=== PATIENT | female | born 1995 | race Caucasian/White ===

== ENCOUNTER 2018-01-21 03:42 | Emergency (ER) | payer BC, OTHER ==
[2018-01-21 03:49] VITALS: BP 126/71; PULSE 82; RESP 16; TEMP 97
--- NOTE | 2018-01-21 04:15 | ED ---
Chest Pain HPI - General Chief Complaint: Chest Pain Stated Complaint: anxiety Time Seen by Provider: 01/21/18 03:45 Source: patient, EMS Mode of arrival: EMS Limitations: no limitations - History of Present Illness Initial Comments: This patient is 22-year-old woman who presents with proximal to 2 days of right- sided chest pain. She states that its moderate intensity, sharp character, and it does seem to be little worse if she takes deep breath. She has not noted other modifying factors. There are no associated symptoms. MD Complaint: chest pain Onset/Timin -: days(s) Onset: during rest Pain Location: right chest Pain Radiation: none Severity: moderate Quality: sharp Consistency: constant Improves With: nothing Worsens With: inspiration Treatments Prior to Arrival: none - Related Data Home Medications Medication Instructions Recorded Confirmed Albuterol Sulfate [Proair 2 puff PO DIRECTED PRN 02/29/16 06/21/16 Respiclick] Budesonide-Formot 160-4.5 Mcg 2 puff INHALATION BID 02/29/16 06/21/16 [Symbicort 160-4.5 Mcg Inhaler] Jwl-Pewh-Kkatg Acid 1 tab PO DAILY 02/29/16 06/21/16 [-U Capsule (formulary)] Previous Rx's Medication Instructions Recorded Acetaminophen-Codeine 300-30mg 1 - 2 each PO Q4HR PRN #30 tab 06/23/16 [Tylenol w/codeine #3] Ibuprofen [Motrin] 600 mg PO Q6HR PRN #40 tab 06/23/16 Iron Ag/C/B12/Ca/Suc.acid/Stom 1 each PO DAILY #30 tab 06/23/16 [Chromagen LF] Ibuprofen [Motrin] 600 mg PO Q8HR PRN #20 tab 01/21/18 Allergies Allergy/AdvReac Type Severity Reaction Status Date / Time No Known Allergies Allergy Verified 01/21/18 03:49 Review of Systems ROS Statement: Those systems with pertinent positive or pertinent negative responses have been documented in the HPI. ROS Other: All systems not noted in ROS Statement are negative. Constitutional: Denies: fever, chills Respiratory: Denies: cough, dyspnea Cardiovascular: Reports: as per HPI, chest pain. Denies: palpitations, orthopnea, edema, syncope Gastrointestinal: Denies: abdominal pain, nausea, vomiting Genitourinary: Denies: hematuria Musculoskeletal: Denies: back pain Skin: Denies: rash Neurological: Denies: headache, weakness, numbness EKG Findings - EKG Results: EKG: interpreted by LOLA NORTON, sinus rhythm (Rate 80 bpm), normal axis, normal QRS, normal ST/T, no acute changes - AR, Pacemaker, Normal: Normal tracing: normal tracing Past Medical History Past Medical History: Asthma History of Any Multi-Drug Resistant Organisms: None Reported Past Surgical History: No Surgical Hx Reported Past Psychological History: No Psychological Hx Reported Smoking Status: Current every day smoker Past Alcohol Use History: Occasional Past Drug Use History: None Reported - Past Family History Father Family Medical History: No Reported History General Exam Limitations: no limitations General appearance: alert, in no apparent distress Head exam: Present: atraumatic, normocephalic Eye exam: Present: normal appearance. Absent: scleral icterus, conjunctival injection Respiratory exam: Present: normal lung sounds bilaterally. Absent: respiratory distress, wheezes, rales, rhonchi, stridor, chest wall tenderness, accessory muscle use, decreased breath sounds Cardiovascular Exam: Present: regular rate, normal rhythm, normal heart sounds. Absent: systolic murmur, diastolic murmur, rubs, gallop GI/Abdominal exam: Present: soft. Absent: distended, tenderness, guarding, rebound Extremities exam: Present: normal inspection, normal capillary refill. Absent: pedal edema, calf tenderness Back exam: Present: normal inspection. Absent: CVA tenderness (R), CVA tenderness (L) Neurological exam: Present: alert Skin exam: Present: warm, dry, intact, normal color. Absent: rash Course Vital Signs 01/21/18 03:43 Temperature 97 F L Pulse Rate 82 Respiratory 16 Rate Blood Pressure 126/71 O2 Sat by Pulse 98 Oximetry Disposition Clinical Impression: Chest pain Disposition: HOME SELF-CARE Condition: Good Instructions: Chest Pain (ED) Prescriptions: Ibuprofen [Motrin] 600 mg PO Q8HR PRN #20 tab PRN Reason: Pain Is patient prescribed a controlled substance at d/c from ED?: No Referrals: Meli Montana DO [Primary Care Provider] - 1-2 days
[2018-01-21] MEDS: IBUPROFEN 600 MG TAB PO STA ×2 (04:28→04:29)
[2018-01-21 04:46] LABS: Basophils # (A) 0.1 k/uL (0-0.2); Basophils % (A) 1 %; Eosinophils # (A) 0.2 k/uL (0-0.7); Eosinophils % (A) 3 %; HCT 44.2 % (34.0-46.0); HGB 14.7 gm/dL (11.4-16.0); Lymphocytes # (A) 1.8 k/uL (1.0-4.8); Lymphocytes % (A) 27 %; MCH 30.7 pg (25.0-35.0); MCHC 33.3 g/dL (31.0-37.0); MCV 92.2 fL (80.0-100.0); Mean Platelet Volume 7.1; Monocytes # (A) 0.4 k/uL (0-1.0); Monocytes % (A) 6 %; Neutrophils # (A) 4.1 k/uL (1.3-7.7); Neutrophils % (A) 62 %; Platelet Count 130 k/uL (150-450); RBC 4.79 m/uL (3.80-5.40); RDW 12.7 % (11.5-15.5); WBC 6.6 k/uL (3.8-10.6)
[2018-01-21 04:58] LABS: ALT 37 U/L (9-52); AST 27 U/L (14-36); Albumin 3.9 g/dL (3.5-5.0); Alkaline Phosphatase 83 U/L (38-126); Anion Gap 16 mmol/L; Blood Urea Nitrogen 12 mg/dL (7-17); Carbon Dioxide 19 mmol/L (22-30); Chloride 107 mmol/L (98-107); D-Dimer 0.53 mg/L FEU (<0.60); Glucose 96 mg/dL (74-99); INR 1.1 (<1.2); Magnesium 1.9 mg/dL (1.6-2.3); Partial Thromboplastin Time 26.4 sec (22.0-30.0); Potassium 3.4 mmol/L (3.5-5.1); Prothrombin Time 10.3 sec (9.0-12.0); Sodium 142 mmol/L (137-145); Total Bilirubin 0.3 mg/dL (0.2-1.3); Total Protein 6.2 g/dL (6.3-8.2)
[2018-01-21 04:59] LABS: Creatine Kinase 214 U/L (30-135)
--- NOTE | 2018-01-21 05:08 | XR ---
EXAM: XR Chest, 2 Views CLINICAL HISTORY: ITS.REASON XR Reason: Chest Pain TECHNIQUE: Frontal and lateral views of the chest. COMPARISON: No relevant prior studies available. FINDINGS: Lungs: No consolidation. Pleural space: No effusion. No pneumothorax. Heart: Unremarkable. No cardiomegaly. Mediastinum: Unremarkable. Bones/joints: No acute fracture. No dislocation. IMPRESSION: No acute cardiopulmonary process.
[2018-01-21 05:12] LABS: Creatine Kinase MB 0.5 ng/mL (0.0-2.4); Troponin I <0.012 ng/mL (0.000-0.034)
== END 2018-01-21 05:37 | disposition home or self-care (01) ==
LOC: EC 03:42
DX: R07.9 Chest pain, unspecified (principal); J45.909 Unspecified asthma, uncomplicated; F17.200 Nicotine dependence, unspecified, uncomplicated; Z79.51 Long term (current) use of inhaled steroids
CPT/HCPCS: 36415; 71046; 80053; 82550; 82553; 83735; 84484; 85025; 85379; 85610; 85730; 93005; 99285

== ENCOUNTER 2019-02-23 22:42 | Observation (INO) | payer BC ==
[2019-02-23] MEDS ORDERED: SODIUM CHLORIDE 0.9% 1,000 ML IV ONE (23:36)
--- NOTE | 2019-02-23 23:37 | ED ---
General Adult HPI - General Source: patient Mode of arrival: ambulatory Limitations: no limitations <Trina Roy - Last Filed: 02/24/19 00:24> <Alexandria Rockwell - Last Filed: 02/24/19 03:55> - General Chief complaint: Overdose Stated complaint: Overdose Time Seen by Provider: 02/23/19 23:27 - History of Present Illness Initial comments: 23-year-old female presenting with altered mental status. Patient's friends at bedside providing history. They state that the patient's mother is a strong history of drug abuse and she was there all day. They picked her up to go to her boyfriend's house to get clothes. Her friends state that she has been under a lot of stress secondary to her boyfriend not giving her children to her. They state while in the car she was screaming about seeing bugs and bombs going off. They deny any history of behavior like this in the past. Patient states she took her adderall and control today. She denies any other drug use. She states she drank half a beer. Denies any other drug ingestion. Denies SI or intentional ingestion. (Trina Roy) - Related Data Home Medications Medication Instructions Recorded Confirmed Dextroamphetamine/Amphetamine 30 mg PO BID 02/23/19 02/23/19 [Adderall] Ibuprofen [Motrin] 800 mg PO TID PRN 02/23/19 02/23/19 Merrick Fe 1 tab PO DAILY 02/23/19 02/23/19 Allergies Allergy/AdvReac Type Severity Reaction Status Date / Time paroxetine [From Paxil] AdvReac Hallucinati Verified 02/23/19 23:40 ons Review of Systems ROS Other: All systems not noted in ROS Statement are negative. <Trina Roy - Last Filed: 02/24/19 00:24> ROS Other: All systems not noted in ROS Statement are negative. <Alexandria Rockwell - Last Filed: 02/24/19 03:55> ROS Statement: Those systems with pertinent positive or pertinent negative responses have been documented in the HPI. Review of Systems Constitutional: Denies fever, chills Eyes: Denies change in vision, Denies pain Ears, nose, mouth, throat: Denies headaches, Denies sore throat Cardiovascular: Denies chest pain. Denies palpitations Respiratory: Denies shortness of breath, Denies cough Gastrointestinal: Denies abdominal pain. Denies nausea, vomiting, diarrhea. Genitourinary: Denies hematuria, Denies infections Musculoskeletal: Denies pain, Denies swelling Integumentary: Denies rash Neurological: Denies headache, focal weakness, focal numbness. Positive hallucinations. Psychiatric: Denies anxiety, Denies depression Hematologic/Lymphatic: Denies easy bleeding or bruising (rTina Roy) Past Medical History Past Medical History: Asthma History of Any Multi-Drug Resistant Organisms: None Reported Past Surgical History: No Surgical Hx Reported Past Psychological History: No Psychological Hx Reported Smoking Status: Current every day smoker Past Alcohol Use History: Occasional Past Drug Use History: None Reported - Past Family History Father Family Medical History: No Reported History <Trina Roy - Last Filed: 02/24/19 00:24> General Exam Limitations: no limitations <Trina Roy - Last Filed: 02/24/19 00:24> - General Exam Comments Initial Comments: General: Awake, alert, No acute Distress HENT: Normocephalic. Atraumatic Eyes: PERRL. EOMI. No scleral icterus. No injected conjunctiva Neck: Full ROM Chest/Lungs: Clear to auscultation bilaterally. No wheezing, rhonchi, or rales Cardiac: Regular rate, rhythm. No murmurs or rubs Abdomen/GI: Soft, nontender, nondistended. No rebound, guarding, or rigidity. Musculoskeletal: Full ROM Skin: Warm, dry, intact Neurologic: A/Ox3, no weakness, no sensory deficit, no abnormal gait, no coordination deficit (Trina Roy) Course Vital Signs 02/23/19 02/24/19 02/24/19 22:53 00:26 00:30 Temperature 98 F Pulse Rate 121 H 114 H Respiratory 18 19 Rate Blood Pressure 133/82 123/91 O2 Sat by Pulse 100 96 96 Oximetry 02/24/19 02/24/19 02/24/19 01:00 01:30 02:00 Temperature Pulse Rate 105 H Respiratory 20 Rate Blood Pressure 114/88 126/85 124/60 O2 Sat by Pulse 98 Oximetry 02/24/19 02:30 Temperature Pulse Rate Respiratory Rate Blood Pressure 126/80 O2 Sat by Pulse Oximetry Medical Decision Making - Lab Data Result diagrams: 02/23/19 23:53 02/23/19 23:53 <Trina Roy - Last Filed: 02/24/19 00:24> - Lab Data Result diagrams: 02/23/19 23:53 02/23/19 23:53 <Alexanrdia Rockwell - Last Filed: 02/24/19 03:55> - Medical Decision Making 23-year-old female presenting with possible overdose. Initial exam the patient is awake and alert. The triage notes that she was lethargic but on my examination that is not the case. Vital signs are stable. 0024 Patient is agitated and stating she is seeing bugs crawling on her. Ativan 1 mg given IV. (Trina Roy) Patient care was signed out to me by Dr Krause, patient with no psychiatric history presenting agitated and reporting she is seeing bugs crawling on her. Per friends patient is also under social stress due to custody issues with her children and strained relationship with her ex. Labs and imaging were unremarkable. Upon re-evaluation patient was sleeping, patient would not participate in my evaluation. responds to painful stimuli. Resists exam, holds eyes closed and turns head away when I attempted to examine her. At this time I feel the patient requires with her observation and possible evaluation by psych psychiatric services in the morning. Patient care was discussed with , per the preference of her primary care physician Dr. Montana. Dr. Etienne agrees with plan for admission psychiatric observation. (Alexandria Rockwell) - Lab Data Lab Results 02/23/19 02/23/19 02/23/19 Range/Units 23:19 23:53 23:53 WBC 9.1 (3.8-10.6) k/uL RBC 4.60 (3.80-5.40) m/uL Hgb 14.0 (11.4-16.0) gm/dL Hct 42.7 (34.0-46.0) % MCV 92.8 (80.0-100.0) fL MCH 30.4 (25.0-35.0) pg MCHC 32.7 (31.0-37.0) g/dL RDW 13.0 (11.5-15.5) % Plt Count 141 L (150-450) k/uL Neutrophils % 71 % Lymphocytes % 20 % Monocytes % 5 % Eosinophils % 2 % Basophils % 1 % Neutrophils # 6.5 (1.3-7.7) k/uL Lymphocytes # 1.8 (1.0-4.8) k/uL Monocytes # 0.5 (0-1.0) k/uL Eosinophils # 0.2 (0-0.7) k/uL Basophils # 0.1 (0-0.2) k/uL Sodium 138 (137-145) mmol/L Potassium 3.6 (3.5-5.1) mmol/L Chloride 106 (98-107) mmol/L Carbon Dioxide 26 (22-30) mmol/L Anion Gap 6 mmol/L BUN 9 (7-17) mg/dL Creatinine 0.89 (0.52-1.04) mg/dL Est GFR (CKD-EPI)AfAm >90 (>60 ml/min/1.73 sqM) Est GFR (CKD-EPI)NonAf >90 (>60 ml/min/1.73 sqM) Glucose 128 H (74-99) mg/dL Calcium 9.5 (8.4-10.2) mg/dL Total Bilirubin 0.7 (0.2-1.3) mg/dL AST 26 (14-36) U/L ALT 29 (9-52) U/L Alkaline Phosphatase 106 (38-126) U/L Total Protein 6.6 (6.3-8.2) g/dL Albumin 4.1 (3.5-5.0) g/dL HCG, Qual Not Detected Urine Color Yellow Urine Appearance Cloudy H (Clear) Urine pH 6.5 (5.0-8.0) Ur Specific [place] 1.008 (1.001-1.035) Urine Protein Negative (Negative) Urine Glucose (UA) Negative (Negative) Urine Ketones Trace H (Negative) Urine Blood Negative (Negative) Urine Nitrite Negative (Negative) Urine Bilirubin Negative (Negative) Urine Urobilinogen 4.0 (<2.0) mg/dL Ur Leukocyte Esterase Large H (Negative) Urine RBC 2 (0-5) /hpf Urine WBC 17 H (0-5) /hpf Ur Squamous Epith Cells 15 H (0-4) /hpf Urine Bacteria Few H (None) /hpf Urine Mucus Rare H (None) /hpf Urine Opiates Screen Not Detected (NotDetected) Ur Oxycodone Screen Not Detected (NotDetected) Urine Methadone Screen Not Detected (NotDetected) Ur Propoxyphene Screen Not Detected (NotDetected) Ur Barbiturates Screen Not Detected (NotDetected) U Tricyclic Antidepress Not Detected (NotDetected) Ur Phencyclidine Scrn Not Detected (NotDetected) Ur Amphetamines Screen Detected H (NotDetected) U Methamphetamines Scrn Not Detected (NotDetected) U Benzodiazepines Scrn Not Detected (NotDetected) Urine Cocaine Screen Not Detected (NotDetected) U Marijuana (THC) Screen Not Detected (NotDetected) Serum Alcohol mg/dL 02/24/19 Range/Units 02:15 WBC (3.8-10.6) k/uL RBC (3.80-5.40) m/uL Hgb (11.4-16.0) gm/dL Hct (34.0-46.0) % MCV (80.0-100.0) fL MCH (25.0-35.0) pg MCHC (31.0-37.0) g/dL RDW (11.5-15.5) % Plt Count (150-450) k/uL Neutrophils % % Lymphocytes % % Monocytes % % Eosinophils % % Basophils % % Neutrophils # (1.3-7.7) k/uL Lymphocytes # (1.0-4.8) k/uL Monocytes # (0-1.0) k/uL Eosinophils # (0-0.7) k/uL Basophils # (0-0.2) k/uL Sodium (137-145) mmol/L Potassium (3.5-5.1) mmol/L Chloride (98-107) mmol/L Carbon Dioxide (22-30) mmol/L Anion Gap mmol/L BUN (7-17) mg/dL Creatinine (0.52-1.04) mg/dL Est GFR (CKD-EPI)AfAm (>60 ml/min/1.73 sqM) Est GFR (CKD-EPI)NonAf (>60 ml/min/1.73 sqM) Glucose (74-99) mg/dL Calcium (8.4-10.2) mg/dL Total Bilirubin (0.2-1.3) mg/dL AST (14-36) U/L ALT (9-52) U/L Alkaline Phosphatase (38-126) U/L Total Protein (6.3-8.2) g/dL Albumin (3.5-5.0) g/dL HCG, Qual Urine Color Urine Appearance (Clear) Urine pH (5.0-8.0) Ur Specific [place] (1.001-1.035) Urine Protein (Negative) Urine Glucose (UA) (Negative) Urine Ketones (Negative) Urine Blood (Negative) Urine Nitrite (Negative) Urine Bilirubin (Negative) Urine Urobilinogen (<2.0) mg/dL Ur Leukocyte Esterase (Negative) Urine RBC (0-5) /hpf Urine WBC (0-5) /hpf Ur Squamous Epith Cells (0-4) /hpf Urine Bacteria (None) /hpf Urine Mucus (None) /hpf Urine Opiates Screen (NotDetected) Ur Oxycodone Screen (NotDetected) Urine Methadone Screen (NotDetected) Ur Propoxyphene Screen (NotDetected) Ur Barbiturates Screen (NotDetected) U Tricyclic Antidepress (NotDetected) Ur Phencyclidine Scrn (NotDetected) Ur Amphetamines Screen (NotDetected) U Methamphetamines Scrn (NotDetected) U Benzodiazepines Scrn (NotDetected) Urine Cocaine Screen (NotDetected) U Marijuana (THC) Screen (NotDetected) Serum Alcohol <10 mg/dL Disposition <Trina Roy E - Last Filed: 02/24/19 00:24> <Alexandria Rockwell - Last Filed: 02/24/19 03:55> Clinical Impression: Altered behavior Disposition: ADMITTED IP TO THIS [facility] Condition: Stable Referrals: Meli Montana DO [Primary Care Provider] - 1-2 days
[2019-02-24 00:11] LABS: Appearance,Urine Cloudy (Clear); Bacteria,Urine Few /hpf; Bilirubin,Urine Negative (Negative); Blood,Urine Negative (Negative); Color,Urine Yellow; Glucose,Urine (UA) Negative (Negative); Ketones,Urine Trace (Negative); Leukocyte Esterase,Urine Large (Negative); Mucus,Urine Rare /hpf; Nitrite,Urine Negative (Negative); PH, Urine 6.5 (5.0-8.0); Protein,Urine Negative (Negative); RBC,Urine 2 /hpf (0-5); Specific Gravity,Urine 1.008 (1.001-1.035); Squamous Epithelial Cell,Urine 15 /hpf (0-4); WBC,Urine 17 /hpf (0-5)
[2019-02-24 00:12] LABS: Basophils # (A) 0.1 k/uL (0-0.2); Basophils % (A) 1 %; Eosinophils # (A) 0.2 k/uL (0-0.7); Eosinophils % (A) 2 %; HCT 42.7 % (34.0-46.0); Lymphocytes # (A) 1.8 k/uL (1.0-4.8); Lymphocytes % (A) 20 %; MCH 30.4 pg (25.0-35.0); MCHC 32.7 g/dL (31.0-37.0); MCV 92.8 fL (80.0-100.0); Mean Platelet Volume 8.3; Monocytes # (A) 0.5 k/uL (0-1.0); Monocytes % (A) 5 %; Neutrophils # (A) 6.5 k/uL (1.3-7.7); Neutrophils % (A) 71 %; Platelet Count 141 k/uL (150-450); WBC 9.1 k/uL (3.8-10.6)
[2019-02-24 00:21] LABS: ALT 29 U/L (9-52); AST 26 U/L (14-36); African American GFR (CKD) >90 (>60 ml/min/1.73 sqM); Albumin 4.1 g/dL (3.5-5.0); Alkaline Phosphatase 106 U/L (38-126); Anion Gap 6 mmol/L; Blood Urea Nitrogen 9 mg/dL (7-17); Calcium 9.5 mg/dL (8.4-10.2); Carbon Dioxide 26 mmol/L (22-30); Chloride 106 mmol/L (98-107); Glucose 128 mg/dL (74-99); Potassium 3.6 mmol/L (3.5-5.1); Sodium 138 mmol/L (137-145); Total Bilirubin 0.7 mg/dL (0.2-1.3); Total Protein 6.6 g/dL (6.3-8.2)
[2019-02-24 00:23] LABS: HCG,Qualitative Serum Not Detected
[2019-02-24] MEDS ORDERED: LORazepam 2 MG/ML INJ IV STA (00:23)
[2019-02-24 00:24] LABS: Amphetamine Screen,Urine Detected (NotDetected); Barbiturate Screen,Urine Not Detected (NotDetected); Benzodiazepines Screen,Urine Not Detected (NotDetected); Cocaine Screen,Urine Not Detected (NotDetected); Methadone Screen, Urine Not Detected (NotDetected); Opiate Screen,Urine Not Detected (NotDetected); Oxycodone Screen, Urine Not Detected (NotDetected); Phencyclidine Screen,Urine Not Detected (NotDetected); Tricyclic Antidepressant,Urine Not Detected (NotDetected); Urn Cannabinoid Scrn Not Detected (NotDetected)
--- NOTE | 2019-02-24 01:51 | CT ---
EXAM: CT Head Without Intravenous Contrast CLINICAL HISTORY: ITS.REASON CT Reason: Papilledema TECHNIQUE: Axial computed tomography images of the head/brain without intravenous contrast. CTDI is 49.1 mGy and DLP is 1099.4 mGy-cm. This CT exam was performed using one or more of the following dose reduction techniques: automated exposure control, adjustment of the mA and/or kV according to patient size, and/or use of iterative reconstruction technique. COMPARISON: No relevant prior studies available. FINDINGS: Brain: Unremarkable. No hemorrhage. No significant white matter disease. No edema. Ventricles: Unremarkable. No ventriculomegaly. Bones/joints: Unremarkable. No acute fracture. Soft tissues: Unremarkable. Sinuses: Unremarkable as visualized. No acute sinusitis. Mastoid air cells: Unremarkable as visualized. No mastoid effusion. IMPRESSION: Normal head/brain CT.
[2019-02-24] MEDS ORDERED: LORazepam 2 MG/ML INJ IV PRN (03:47)
[2019-02-24] MEDS ORDERED: NALOXONE 0.4 MG/ML 1 ML VIAL IV PRN (03:47)
[2019-02-24] MEDS: SODIUM CHLORIDE 0.9% 1,000 ML IV SCH ×2 (04:14→20:01)
--- NOTE | 2019-02-24 12:57 | P.HPIM ---
History of Present Illness H&P Date: 02/24/19 This is a 23-year-old female patient who presented to the hospital with complains of altered mental status changes. Patient is unable to recall the events of yesterday. Per ER report patient's friend reported that she was confused and screaming about bugs and bombs going off. Per ER report patient has been under a lot of stress secondary to her boyfriend and child custody. Patient's medical history includes asthma and nicotine dependence. CT completed showing normal head. EKG completed showing normal sinus rhythm normal EKG. Patient reports she last remembers going to her sisters.. Patient denies taking any drugs or alcohol. Patient remembers taking her control. Drug toxicology positive amphetamines. serum alcohol less than 10. Patient denies any recent illness. Patient denies any chest pain or shortness breath. Patient denies nausea vomiting or diarrhea. Denies any urinary burning or frequency. Patient is now alert and oriented following commands. Patient does appear slow to respond but responds appropriately to questions. Patient is not combative. psychiatry and neurology services have been consulted. Review of Systems please refer to HPI otherwise unremarkable Past Medical History Past Medical History: Asthma History of Any Multi-Drug Resistant Organisms: None Reported Past Surgical History: No Surgical Hx Reported Past Psychological History: No Psychological Hx Reported Smoking Status: Current every day smoker Past Alcohol Use History: Occasional Past Drug Use History: None Reported - Past Family History Father Family Medical History: No Reported History Medications and Allergies Home Medications Medication Instructions Recorded Confirmed Type Dextroamphetamine/Amphetamine 30 mg PO BID 02/23/19 02/23/19 History [Adderall] Ibuprofen [Motrin] 800 mg PO TID PRN 02/23/19 02/23/19 History Merrick Fe 1 tab PO DAILY 02/23/19 02/23/19 History Allergies Allergy/AdvReac Type Severity Reaction Status Date / Time paroxetine [From Paxil] AdvReac Hallucinati Verified 02/23/19 23:40 ons Physical Exam Vitals: Vital Signs Temp Pulse Pulse Resp BP BP Pulse Ox 02/24/19 07:09 98.5 F 92 18 96/55 96 02/24/19 05:25 97.5 F L 76 23 116/78 96 02/24/19 04:45 71 14 112/76 98 02/24/19 04:30 97.7 F 75 14 112/76 96 02/24/19 04:00 76 15 111/72 96 02/24/19 03:30 74 14 114/68 95 02/24/19 02:30 126/80 02/24/19 02:00 124/60 02/24/19 01:30 126/85 02/24/19 01:00 105 H 20 114/88 98 02/24/19 00:30 114 H 19 123/91 96 02/24/19 00:26 96 02/23/19 22:53 98 F 121 H 18 133/82 100 Intake and Output 02/23/19 02/24/19 02/24/19 22:59 06:59 14:59 Intake Total 1000 Balance 1000 Intake: Amount of Fluid Infused ( 1000 ml) Other: Weight 65.771 kg Head normocephalic Neck supple Lungs clear to auscultation bilaterally no wheezing or crackles Heart regular rate and rhythm S1-S2, no rub or gallop Abdomen is soft nontender nondistended positive bowel sounds no hepatosplenomegaly Extremities no edema Neuro alert and orientated to 3. Answers questions appropriately. Slightly slow to respond. Equal strength throughout all extremities Results CBC & Chem 7: 02/23/19 23:53 02/23/19 23:53 Labs: Abnormal Lab Results - Last 24 Hours (Table) 02/23/19 02/23/19 02/23/19 Range/Units 23:19 23:53 23:53 Plt Count 141 L (150-450) k/uL Glucose 128 H (74-99) mg/dL Urine Appearance Cloudy H (Clear) Urine Ketones Trace H (Negative) Ur Leukocyte Esterase Large H (Negative) Urine WBC 17 H (0-5) /hpf Ur Squamous Epith Cells 15 H (0-4) /hpf Urine Bacteria Few H (None) /hpf Urine Mucus Rare H (None) /hpf Ur Amphetamines Screen Detected H (NotDetected) Assessment and Plan Assessment: 1. Altered mental status changes. Head CT completed showing normal head. Drug screen positive for amphetamines. Serum alcohol less than 10. Psychiatry and neurology services have been consulted. 2. History of asthma. No exacerbation at this time 3. Nicotine dependence. Nicotine patch has been ordered. Patient educated on smoking cessation greater than 3 minutes 4. Increased social stress. Psychiatry services have been consulted DVT prophylaxis Lovenox. GI prophylaxis Protonix Time with Patient: Greater than 30 (Greater than 60% of the total time spent in counseling and coordination of care. I performed an examination of the patient and discussed their management with the Nurse Practitioner. I have reviewed the Nurse Practitioner's notes and agree with the documented findings and plan of care)
[2019-02-24 15:03] VITALS: BMI 24.1
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
[2019-02-24] MEDS: NICOTINE 14MG/24HR PATCH TRANSDERM SCH (17:24)
[2019-02-24] MEDS: ACETAMINOPHEN TAB 325 MG TAB PO PRN (23:07)
[2019-02-25] MEDS: SODIUM CHLORIDE 0.9% 1,000 ML IV SCH ×2 (04:39→21:48)
[2019-02-25] MEDS ORDERED: PANTOPRAZOLE 40 MG TABLET PO SCH (07:30)
[2019-02-25 08:08] LABS: Basophils # (A) 0.1 k/uL (0-0.2); Basophils % (A) 1 %; Eosinophils # (A) 0.2 k/uL (0-0.7); Eosinophils % (A) 3 %; HCT 41.8 % (34.0-46.0); HGB 13.6 gm/dL (11.4-16.0); Lymphocytes # (A) 2.8 k/uL (1.0-4.8); Lymphocytes % (A) 38 %; MCHC 32.5 g/dL (31.0-37.0); MCV 95.4 fL (80.0-100.0); Mean Platelet Volume 7.9; Monocytes # (A) 0.4 k/uL (0-1.0); Monocytes % (A) 5 %; Neutrophils # (A) 3.7 k/uL (1.3-7.7); Neutrophils % (A) 51 %; Platelet Count 135 k/uL (150-450); RBC 4.38 m/uL (3.80-5.40); RDW 12.3 % (11.5-15.5); WBC 7.4 k/uL (3.8-10.6)
[2019-02-25] MEDS: NICOTINE 14MG/24HR PATCH TRANSDERM SCH (08:10)
[2019-02-25 08:25] LABS: ALT 26 U/L (9-52); AST 20 U/L (14-36); African American GFR (CKD) >90 (>60 ml/min/1.73 sqM); Albumin 3.2 g/dL (3.5-5.0); Alkaline Phosphatase 86 U/L (38-126); Anion Gap 6 mmol/L; Blood Urea Nitrogen 8 mg/dL (7-17); Calcium 8.4 mg/dL (8.4-10.2); Carbon Dioxide 25 mmol/L (22-30); Chloride 109 mmol/L (98-107); Glucose 88 mg/dL (74-99); Sodium 140 mmol/L (137-145); Total Bilirubin 0.3 mg/dL (0.2-1.3); Total Protein 5.4 g/dL (6.3-8.2)
--- NOTE | 2019-02-25 08:40 | P.PN ---
Progress Note - Text Progress Note Date: 02/25/19 Labs reviewed. B12 <400. Will send MMA and homocysteine to make sure she does not meet criteria for B12 deficiency. These tests will take several days to come back. Suggest outpatient follow-up. No other inpatient neuro recs at this time. Please call with new questions.
[2019-02-25] MEDS ORDERED: ENOXAPARIN 40 MG/0.4 ML SYRINGE SQ SCH (09:00)
[2019-02-25] MEDS ORDERED: NICOTINE 14MG/24HR PATCH TRANSDERM SCH (09:00)
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
[2019-02-25] MEDS: ACETAMINOPHEN TAB 325 MG TAB PO PRN (20:06)
[2019-02-26 07:07] LABS: Basophils # (A) 0.1 k/uL (0-0.2); Basophils % (A) 1 %; Eosinophils # (A) 0.3 k/uL (0-0.7); Eosinophils % (A) 4 %; HCT 43.4 % (34.0-46.0); HGB 13.9 gm/dL (11.4-16.0); Lymphocytes # (A) 2.6 k/uL (1.0-4.8); Lymphocytes % (A) 34 %; MCH 30.8 pg (25.0-35.0); MCV 96.3 fL (80.0-100.0); Mean Platelet Volume 8.1; Monocytes # (A) 0.4 k/uL (0-1.0); Monocytes % (A) 5 %; Neutrophils # (A) 4.2 k/uL (1.3-7.7); Neutrophils % (A) 55 %; Platelet Count 140 k/uL (150-450); RBC 4.51 m/uL (3.80-5.40); RDW 14.3 % (11.5-15.5); WBC 7.6 k/uL (3.8-10.6)
[2019-02-26 07:21] LABS: ALT 26 U/L (9-52); AST 17 U/L (14-36); African American GFR (CKD) >90 (>60 ml/min/1.73 sqM); Albumin 3.4 g/dL (3.5-5.0); Alkaline Phosphatase 78 U/L (38-126); Anion Gap 7 mmol/L; Blood Urea Nitrogen 13 mg/dL (7-17); Calcium 8.8 mg/dL (8.4-10.2); Carbon Dioxide 23 mmol/L (22-30); Chloride 111 mmol/L (98-107); Glucose 98 mg/dL (74-99); Potassium 3.9 mmol/L (3.5-5.1); Sodium 141 mmol/L (137-145); Total Bilirubin 0.2 mg/dL (0.2-1.3); Total Protein 5.8 g/dL (6.3-8.2)
[2019-02-26 07:56] VITALS: BP 115/81; PULSE 79; RESP 17; TEMP 97.9
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
== END 2019-02-26 09:46 | disposition home or self-care (01) ==
LOC: EC 22:42 → 4SSUR 02-24 03:47
PROVIDERS: ADMIT Family Medicine; ATTEND Family Medicine
DX: F15.122 Other stimulant abuse with intoxication with perceptual disturbance (principal); T43.621A Poisoning by amphetamines, accidental (unintentional), initial encounter; F23 Brief psychotic disorder; F41.9 Anxiety disorder, unspecified; Z60.9 Problem related to social environment, unspecified; Z73.3 Stress, not elsewhere classified; F90.9 Attention-deficit hyperactivity disorder, unspecified type; F41.0 Panic disorder [episodic paroxysmal anxiety]; F32.9 Major depressive disorder, single episode, unspecified; T74.11XA Adult physical abuse, confirmed, initial encounter; F17.200 Nicotine dependence, unspecified, uncomplicated; Z79.899 Other long term (current) drug therapy; Z79.3 Long term (current) use of hormonal contraceptives; Z87.09 Personal history of other diseases of the respiratory system; Z88.8 Allergy status to other drugs, medicaments and biological substances
CPT/HCPCS: 96372; 96361; 96374; 99285; 36415; 93005; 83921; 80053 ×3; 82607; 84443; 85025 ×3; 81001; 84703; 83090; 80306; 80320; 87086; 70450; G0378 ×3; S4990; J2060; J1650

== ENCOUNTER 2019-12-30 22:12 | Emergency (ER) | payer BC, OTHER ==
--- NOTE | 2019-12-30 22:33 | ED ---
ENT HPI - General Chief complaint: Dental/Oral Stated complaint: Dental pain Time Seen by Provider: 12/30/19 22:21 Source: patient, RN notes reviewed, old records reviewed Mode of arrival: ambulatory Limitations: no limitations - History of Present Illness Initial comments: This is a 24 show female presents today for evaluation of mouth pain left lower molar pain. She has a fractured tooth factors removal has had recurrent infections no fevers no swelling. Patient has pain severe with biting down. Otherwise patient has no new complaints, pain for 2 days getting worse unable to eat currently, able swallow. Patient's taking Motrin for pain without MD complaint: tooth pain (Left lower molar) -: days(s) Severity: severe Severity scale (1-10): 8 Quality: aching Consistency: constant Improves with: none Worsens with: none Context- Dental: history of dental caries, poor dental care - Related Data Home Medications Medication Instructions Recorded Confirmed Ibuprofen [Motrin] 800 mg PO TID PRN 02/23/19 02/23/19 Merrick Fe 1 tab PO DAILY 02/23/19 02/23/19 Previous Rx's Medication Instructions Recorded Penicillin V Potassium [Pen Vee K] 500 mg PO QID #40 tablet 12/30/19 Allergies Allergy/AdvReac Type Severity Reaction Status Date / Time paroxetine [From Paxil] AdvReac Hallucinati Verified 12/30/19 22:19 ons Review of Systems ROS Statement: Those systems with pertinent positive or pertinent negative responses have been documented in the HPI. ROS Other: All systems not noted in ROS Statement are negative. Past Medical History Past Medical History: Asthma History of Any Multi-Drug Resistant Organisms: None Reported Past Surgical History: No Surgical Hx Reported Past Psychological History: No Psychological Hx Reported Smoking Status: Current every day smoker Past Alcohol Use History: Occasional Past Drug Use History: None Reported - Past Family History Father Family Medical History: No Reported History General Exam Limitations: no limitations General appearance: alert, in no apparent distress Head exam: Present: atraumatic, normocephalic, normal inspection Eye exam: Present: normal appearance, PERRL, EOMI. Absent: scleral icterus, conjunctival injection, periorbital swelling ENT exam: Present: normal exam, mucous membranes moist, other (Left lower tooth fractures no drainable abscess) Neck exam: Present: normal inspection. Absent: tenderness, meningismus, lymphadenopathy Respiratory exam: Present: normal lung sounds bilaterally. Absent: respiratory distress, wheezes, rales, rhonchi, stridor Cardiovascular Exam: Present: regular rate, normal rhythm, normal heart sounds. Absent: systolic murmur, diastolic murmur, rubs, gallop, clicks GI/Abdominal exam: Present: soft, normal bowel sounds. Absent: distended, tenderness, guarding, rebound, rigid Extremities exam: Present: normal inspection, full ROM, normal capillary refill. Absent: tenderness, pedal edema, joint swelling, calf tenderness Back exam: Present: normal inspection Neurological exam: Present: alert, oriented X3, CN II-XII intact Psychiatric exam: Present: normal affect, normal mood Skin exam: Present: warm, dry, intact, normal color. Absent: rash Course Vital Signs 12/30/19 12/30/19 22:17 23:37 Temperature 98.1 F 98.2 F Pulse Rate 88 81 Respiratory 20 16 Rate Blood Pressure 150/86 148/88 O2 Sat by Pulse 99 98 Oximetry - Reevaluation(s) Reevaluation #1: Medical records reviewed Patient has adequate pain control Medical Decision Making - Medical Decision Making 24 female to the ER for evaluation patient has severe left lower molar pain. Patient placed on pain control and antibiotics Disposition Clinical Impression: Dental abscess Disposition: HOME SELF-CARE Condition: Good Instructions (If sedation given, give patient instructions): Dental Abscess (ED), Toothache (ED) Prescriptions: Penicillin V Potassium [Pen Vee K] 500 mg PO QID #40 tablet Is patient prescribed a controlled substance at d/c from ED?: No Referrals: None,Stated [Primary Care Provider] - 1-2 days
[2019-12-30] MEDS ORDERED: Acetaminophen-Codeine 300-30mg TAB PO STA (23:07)
[2019-12-30] MEDS ORDERED: PENICILLIN VK 500MG STARTER 4 TAB BTL PO STA (23:07)
[2019-12-30] MEDS ORDERED: DEXAMETHASONE 4 MG TAB PO STA (23:07)
[2019-12-30] MEDS ORDERED: PENICILLIN V POTASSIUM 250 MG TAB PO STA (23:07)
[2019-12-30] MEDS ORDERED: ACET/COD 300 MG/30 MG STARTER PACK 6 TAB BTL PO STA (23:07)
[2019-12-30 23:38] VITALS: BP 148/88; PULSE 81; RESP 16; TEMP 98.2
== END 2019-12-30 23:37 | disposition home or self-care (01) ==
LOC: EC 22:12
DX: K04.7 Periapical abscess without sinus (principal); K02.9 Dental caries, unspecified; Z79.3 Long term (current) use of hormonal contraceptives; F17.200 Nicotine dependence, unspecified, uncomplicated; Z88.8 Allergy status to other drugs, medicaments and biological substances
CPT/HCPCS: 99283; J8540

== ENCOUNTER → 2020-11-19 | Outpatient (CLI) | payer BC, OTHER ==
--- NOTE | 2020-11-19 11:26 | US ---
EXAMINATION TYPE: Transabdominal DATE OF EXAM: 11/19/2020 11:04 AM COMPARISON: NONE CLINICAL HISTORY: Z36 confirm dates. Confirm dates EXAM PERFORMED: Transabdominal (TA) EXAM MEASUREMENTS: GESTATIONAL AGE / DATING Physician Established: Not yet established Dates by LMP: LMP unknown Dates by First Scan: No previous this is first scan Dates by Current Scan for: (9 weeks/2 days) EDC: 06/23/2021 MATERNAL ANATOMY Uterus: 10.8 x 9.2 x 10.5 cm Right Ovary: Obscured by bowel gas Left Ovary: 2.6 x 2.6 x 3.2 cm Post CDS / Adnexa: wnl Presence of free fluid: no Presence of corpus luteal cyst: yes left ovary Presence of subchorionic bleed: no GESTATION / SURVEY CRL: 2.40 cm (9 weeks/1 days) Yolk Sac (normal less than 6mm): 4mm Heart Rate: 169 bpm Rhythm: Normal IUP: Viable IUP Beta HcG (if available): Not available at this time IMPRESSION: Viable of 9 weeks 2 days and heart rate of 169 bpm.
[2020-11-19 12:04] LABS: African American GFR (CKD) >90 (>60 ml/min/1.73 sqM); Glucose 90 mg/dL (74-99); Non-African American GFR(CKD) >90 (>60 ml/min/1.73 sqM)
[2020-11-19 12:26] LABS: HCT 42.1 % (34.0-46.0); MCH 31.3 pg (25.0-35.0); MCHC 33.2 g/dL (31.0-37.0); MCV 94.3 fL (80.0-100.0); Mean Platelet Volume 8.2; Platelet Count 125 k/uL (150-450); RBC 4.47 m/uL (3.80-5.40); RDW 13.1 % (11.5-15.5)
[2020-11-19 21:12] LABS: Hepatitis B Surface Antigen Non-Reactive (Non-Reactive)
[2020-11-20 00:43] LABS: HIV 2 AB Non-Reactive (Non-Reactive); HIV AB P24 Non-Reactive (Non-Reactive); HIV P24 AG Non-Reactive (Non-Reactive)
[2020-11-22 05:38] LABS: Toxoplasma Antibody (IgG) <3.0 IU/mL (<7.2); Toxoplasma Antibody (IgM) <3.0 AU/mL (<8.0)
== END | disposition home or self-care (01) ==
LOC: RADUSWWP 10:38
PROVIDERS: ATTEND Obstetrics & Gynecology
DX: Z36.89 Encounter for other specified antenatal screening (principal); Z3A.09 9 weeks gestation of pregnancy
CPT/HCPCS: 36415; 76801; 82565; 82947; 85027; 86762; 86777; 86778; 86780; 86850; 86900; 86901; 87340; 87390

== ENCOUNTER 2021-06-16 06:05 | Inpatient (IN) | payer OTHER ==
[2021-06-14 15:36] VITALS: BMI 28.3
--- NOTE | 2021-06-15 06:52 | P.HPOB ---
History of Present Illness H&P Date: 06/15/21 Chief Complaint: Patient is presenting for delivery. This patient is a pleasant 25-year-old 3 para 2 female estimated date of confinement 06/23/2021 estimated gestational age 39 weeks who presents to labor and delivery for delivery. Patient's history is such that in her second she had a emergent section secondary to polyhydramnios with a hand presentation. Patient during this has been undecided about the route of delivery but has decided that if she is not dilated she will proceed with a repeat however dilated she is considering induction. Patient's is also been complicated by thrombocytopenia. Most recent platelets were approximately 94. otherwise has been uncomplicated. She's had normal growth and anatomy ultrasounds. Review of Systems Genitourinary: Reports Menstruation: Reports amenorrhea Past Medical History Past Medical History: Asthma Additional Past Medical History / Comment(s): -induced thrombocytopenia History of Any Multi-Drug Resistant Organisms: None Reported Past Surgical History: Section Additional Past Surgical History / Comment(s): c sect Past Anesthesia/Blood Transfusion Reactions: No Reported Reaction Past Psychological History: No Psychological Hx Reported Smoking Status: Current every day smoker Past Alcohol Use History: None Reported Past Drug Use History: None Reported - Past Family History Father Family Medical History: No Reported History Medications and Allergies Home Medications Medication Instructions Recorded Confirmed Type Albuterol Nebulized (Conc) 2.5 mg INHALATION Q6H PRN 06/14/21 06/14/21 History [Ventolin Nebulized (Conc)] Allergies Allergy/AdvReac Type Severity Reaction Status Date / Time paroxetine [From Paxil] AdvReac Hallucinati Verified 06/14/21 15:30 ons Exam Intake and Output 06/14/21 06/14/21 06/15/21 14:59 22:59 06:59 Other: Weight 77.111 kg - OBG Physical Exam Abdomen: bowel sounds normal, no diffuse tenderness, no bruit present, no guarding noted, no hepatomegaly, no splenomegaly, no mass Vulva: both: normal Vagina: normal moisture, no discharge Cervix: no lesion (Cervix in the office is closed), no discharge Uterus: enlarged Results labs show she is O+, rubella immune, RPR nonreactive, hepatitis B negative, HIV is nonreactive, Glucola was normal, ultrasounds of shown normal anatomy and growth, group B strep is unavailable to me at this dictation. Assessment and Plan Assessment: This is a pleasant 26-year-old 3 para 2 female 39 weeks gestation presents for delivery. Patient's had previous section with her second due to malpresentation. Patient's also had mild thrombocytopenia this . Patient plans on proceeding with section if she is not dilated otherwise will proceed with induction of labor. Patient understands if her platelets are low enough she may require general anesthetic per anesthesia is recommendations. Patient I have discussed surgery and risks including risks of infection,, bleeding, possible injury bowel, bladder, vessels, and/or other organs. All the patient's questions are answered written consent obtained. (1) 39 weeks gestation of Status: Acute Code(s): Z3A.39 - 39 WEEKS GESTATION OF SNOMED Code(s): 40372701 (2) Previous delivery affecting Status: Acute Code(s): O34.219 - MATERNAL CARE FOR UNSP TYPE SCAR FROM PREVIOUS DEL SNOMED Code(s): 565320174 (3) Thrombocytopenia affecting Status: Acute Code(s): O99.119 - OTH DIS OF BLD/BLD-FORM ORG/IMMUN MECHNSM COMP PREG,UNSP TRI; D69.6 - THROMBOCYTOPENIA, UNSPECIFIED SNOMED Code(s): 965430928
[2021-06-16] MEDS ORDERED: LACTATED RINGERS 1,000 ML IV SCH (06:15)
[2021-06-16] MEDS ORDERED: LACTATED RINGERS 1,000 ML IV ONE (06:15)
--- NOTE | 2021-06-16 06:29 | P.PN ---
Progress Note - Text Progress Note Date: 06/16/21 heart tones are reactive. Cervix is closed and thick. Due to the unfavorable cervix and previous section we are going to proceed with repeat section. I did discuss this with the patient and her partner in the understand and wish to proceed.
[2021-06-16 06:30] LABS: Basophils % (A) 0 %; Eosinophils # (A) 0.2 k/uL (0-0.7); Eosinophils % (A) 2 %; HCT 38.3 % (34.0-46.0); HGB 12.7 gm/dL (11.4-16.0); Lymphocytes # (A) 2.1 k/uL (1.0-4.8); Lymphocytes % (A) 21 %; MCH 32.7 pg (25.0-35.0); MCHC 33.3 g/dL (31.0-37.0); MCV 98.3 fL (80.0-100.0); Mean Platelet Volume 9.2; Monocytes # (A) 0.5 k/uL (0-1.0); Monocytes % (A) 5 %; Neutrophils # (A) 7.2 k/uL (1.3-7.7); Neutrophils % (A) 71 %; Platelet Count 97 k/uL (150-450); RDW 13.4 % (11.5-15.5); WBC 10.1 k/uL (3.8-10.6)
[2021-06-16] MEDS: CITRIC ACID-SODIUM CITRATE 15 ML CUP PO ONE ×2 (06:40→07:15)
[2021-06-16] MEDS ORDERED: KETOROLAC 15 MG/ML 1 ML VIAL ONE (07:50)
[2021-06-16] MEDS ORDERED: MORPHINE SULFATE (PF) 0.3 MG/0.3 ML SYR ONE (07:50)
[2021-06-16] MEDS ORDERED: ONDANSETRON 4 MG/2 ML VIAL ONE (07:50)
[2021-06-16] MEDS ORDERED: OXYTOCIN 30 UNITS/500 ML NS BAG IV ONE (07:50)
[2021-06-16] MEDS ORDERED: NALOXONE 0.4 MG/ML 1 ML VIAL IV PRN (08:38)
[2021-06-16] MEDS ORDERED: SIMETHICONE 80 MG CHEWABLE PO PRN (08:38)
[2021-06-16] MEDS ORDERED: OXYTOCIN 30 UNITS/500 ML NS 30 UNIT in SALINE 1 500ML.BAG IV SCH ×2 (08:38→09:00)
[2021-06-16] MEDS ORDERED: LANOLIN CREAM 5 GM TUBE TOPICAL PRN (08:38)
[2021-06-16] MEDS ORDERED: METOCLOPRAMIDE 5 MG/ML 2 ML VIAL IVP PRN (08:38)
[2021-06-16] MEDS ORDERED: diphenhydrAMINE 25 MG CAP PO PRN (08:38)
[2021-06-16] MEDS ORDERED: ZOLPIDEM 5 MG TAB PO PRN (08:38)
[2021-06-16] MEDS ORDERED: SENNOSIDES-DOCUSATE SODIUM 1 EACH TAB PO PRN (08:38)
[2021-06-16] MEDS ORDERED: diphenhydrAMINE 50 MG/ML 1 ML VIAL IVP PRN (08:38)
[2021-06-16] MEDS ORDERED: ONDANSETRON 4 MG/2 ML VIAL IVP PRN (08:38)
--- NOTE | 2021-06-16 13:05 | P.OP ---
Date of Procedure: 06/16/21 Preoperative Diagnosis: #1: 39-0/7 weeks . #2: Previous section was unfavorable cervix. #3: Mild thrombocytopenia Postoperative Diagnosis: Same Procedure(s) Performed: Repeat low transverse section Anesthesia: spinal Surgeon: Pernell Anderson Concrete Crusher Loader Operator #1: Aida Romero Estimated Blood Loss (ml): 600 Pathology: none sent Condition: stable Disposition: observation Indications for Procedure: Please see dictated H&P for intimate details of this patient's admission. Brief summary this is a pleasant 26-year-old 3 para 2 female 39-0/7 weeks gestation admitted to labor and delivery for delivery. Patient had previous ce sarean section initially did wish to however due to an unfavorable cervix we've discussed and decided to proceed with repeat section. Patient understands this surgery and risks including risks of infection, bleeding, possible injury bowel, bladder, vessels, and/or other organs. All the patient's questions are answered written consent obtained. Operative Findings: This is a vigorous viable male Apgars 9 and 10 delivery time is 0809 hrs. Description of Procedure: This patient has a Giraldo catheter placed to straight drain. She is subsequently taken to the operating room where she sat up and spinal anesthetic is administered without incident. With an adequate level of anesthesia she has abdominal prep and drape. Scalpels and taken Pfannenstiel skin incision is made. A second scalpel is taken down to the fascia and the fascia scored with a knife. Fascial incision extended bilaterally using the Brock scissors. Fascia is then dissected off the rectus muscles sharply. Rectus muscles are peritoneum identified and entered sharply. Peritoneal incision extended superior and inferior without difficulty. Bladder blade is then placed. Bladder peritoneum was then taken sharply off the lower uterine segment. Scalpels and taken low transverse uterine incision is then made. Using a hemostat I enter the uterine cavity bluntly and there is loss of clear fluid. This incision is extended bluntly. 's head is then guided through the incision with fundal pressure. Mouth and nares are bulb suctioned. There is a nuchal cord 1 which is easily reduced. With more fundal pressure we then deliver the rest this 's body. Is a vigorous viable male infant Apgars are 9 and 10 delivery time was 0809 hrs. After delivery of the infant the umbilical cord is doubly clamped and cut appears to be trivascular. The placenta is then manually extracted intact. Uterus is then externalized and uterine incision demarcated with Hill clamps. Uterine incision then closed in 0 Vicryl running locked fashion 2 layers. Excellent hemostasis is noted. I suspect the uterus, tubes, ovaries all appear normal. Excess fluid is removed from the abdomen and pelvis. Uterus placed back into the abdomen. Parietal peritoneum was then closed in 0 Vicryl running fashion. Rectus muscles reapproximate 0 Vicryl interrupted fashion. Fascia is then closed using 0 PDS. Fascial incision is intact and hemostatic. Subcutaneous tissues and closed using a 3-0 Vicryl. Skin is and closed using jeremy. All counts are correct 3. There are no complications. and mother are taken to the birthing suite in satisfactory condition.
[2021-06-16] MEDS: KETOROLAC 15 MG/ML 1 ML VIAL IVP SCH ×2 (14:19→21:53)
[2021-06-16] MEDS: LACTATED RINGERS 1,000 ML IV SCH ×2 (14:20→20:13)
[2021-06-16] MEDS: IBUPROFEN 600 MG TAB PO PRN (21:21)
[2021-06-17] MEDS: ACETAMINOPHEN TAB 500 MG TAB PO PRN ×4 (00:10→19:56)
[2021-06-17] MEDS: KETOROLAC 15 MG/ML 1 ML VIAL IVP SCH ×2 (00:29→06:50)
[2021-06-17] MEDS: LACTATED RINGERS 1,000 ML IV SCH (01:49)
[2021-06-17] MEDS: IBUPROFEN 600 MG TAB PO PRN ×4 (03:40→22:19)
--- NOTE | 2021-06-17 06:35 | P.PNOBGPC ---
Subjective - Subjective Patient reports: Reports appetite normal, Reports voiding normally, Reports pain well controlled, Reports ambulating normally : doing well Objective - Vital Signs Latest vital signs: Vital Signs Temp Pulse Resp BP Pulse Ox 06/17/21 04:00 97.4 F L 77 16 121/66 97 06/17/21 00:00 98.3 F 72 16 105/64 97 06/16/21 20:00 98.0 F 74 16 110/71 97 06/16/21 15:27 98.3 F 68 16 102/59 06/16/21 12:00 98.2 F 78 16 107/72 98 06/16/21 10:30 48 L 17 98/70 06/16/21 10:00 61 16 108/69 06/16/21 09:30 67 16 107/53 98 06/16/21 09:15 53 L 16 107/61 98 06/16/21 09:00 62 16 113/57 98 06/16/21 08:45 65 17 94/64 99 06/16/21 08:38 98 06/16/21 08:30 97.6 F 76 16 105/59 06/16/21 06:34 97.4 F L 104 H 18 135/78 98 Intake and Output 06/16/21 06/16/21 06/17/21 14:59 22:59 06:59 Intake Total 1600 Output Total 774 094 9009 Balance -600 1100 -1400 Intake: IV 1000 Invasive Line 1 1000 Oral 600 Output: Urine 330 501 8102 Uretheral (Giraldo) 500 600 Other: # Voids 1 - Exam Lungs: bilateral: normal Chest: Normal S1, Normal S2 Extremities: Present: normal Abdomen: Present: normal appearance, soft. Absent: distention, tenderness Incision: Present: normal, dry, intact Uterus: Present: normal, firm - Labs Labs: Abnormal Lab Results - Last 24 Hours (Table) 06/16/21 Range/Units 06:15 Plt Count 97 L (150-450) k/uL Assessment and Plan Assessment: Postoperative day #1. Patient is resting without complaints. Vital signs are stable she is afebrile. Uterus is firm nontender and her incision is intact and dry. CBC is pending at the time of this dictation. Patient is tolerating regular diet, ambulating, and urinating without difficulty. Plan today is to check CBC, allow the patient to shower, and continue routine postoperative care. (1) 39 weeks gestation of Current Visit: No Status: Acute Code(s): Z3A.39 - 39 WEEKS GESTATION OF SNOMED Code(s): 01769362 (2) Previous delivery affecting Current Visit: No Status: Acute Code(s): O34.219 - MATERNAL CARE FOR UNSP TYPE SCAR FROM PREVIOUS DEL SNOMED Code(s): 086955587 (3) Thrombocytopenia affecting Current Visit: No Status: Acute Code(s): O99.119 - OTH DIS OF BLD/BLD-FORM ORG/IMMUN MECHNSM COMP PREG,UNSP TRI; D69.6 - THROMBOCYTOPENIA, UNSPECIFIED SNOMED Code(s): 237394636
--- NOTE | 2021-06-17 07:40 | P.PN ---
Progress Note - Text Date: 06/17/2021 Time: 07:07 The patient is status post section Vital signs stable VAS: 0-10 Patient has no complaints of pain. The patient incurred some minimal itching yesterday, this itching is now subsiding. Pain meds to be managed by service.
[2021-06-17 07:49] LABS: Basophils % (A) 0 %; Eosinophils # (A) 0.1 k/uL (0-0.7); Eosinophils % (A) 1 %; Lymphocytes # (A) 1.2 k/uL (1.0-4.8); Lymphocytes % (A) 13 %; MCH 33.6 pg (25.0-35.0); MCHC 34.5 g/dL (31.0-37.0); MCV 97.2 fL (80.0-100.0); Mean Platelet Volume 8.7; Monocytes # (A) 0.5 k/uL (0-1.0); Monocytes % (A) 5 %; Neutrophils % (A) 79 %; RBC 3.29 m/uL (3.80-5.40); RDW 14.2 % (11.5-15.5); WBC 8.8 k/uL (3.8-10.6)
[2021-06-17 07:50] LABS: Platelet Count 83 k/uL (150-450)
[2021-06-17 16:15] VITALS: RESP 16
[2021-06-18] MEDS: IBUPROFEN 600 MG TAB PO PRN ×2 (04:44→12:53)
[2021-06-18] MEDS: ACETAMINOPHEN TAB 500 MG TAB PO PRN (08:16)
[2021-06-18 09:30] VITALS: BP 123/78; PULSE 68; TEMP 97.5
--- NOTE | 2021-06-18 12:04 | P.DS ---
Providers Date of admission: 06/16/21 06:05 Expected date of discharge: 06/18/21 Attending physician: Pernell Anderson Primary care physician: Stated None Hospital Course: This is a 26-year-old female 3 para 2 at 39-0/7 weeks who presented for scheduled repeat section She underwent the above-noted procedure by Dr. Anderson on 06/16/2021 with scores of 9 at 1 minute and 10 at 5 minutes and infant weight of 5 lbs. 12 oz. Her course and postoperative course has been essentially uncomplicated. She is passing flatus and bowel movement. Bleeding has been minimal. Pain has been fairly well-controlled with her pain medication. She is bottle feeding. Eitel signs are stable. Abdomen is soft with positive bowel sounds 4. Incision is clean dry and intact with jeremy in place. Extremities show negative Homans. Impression is status post repeat section with delivery of a viable male infant on 06/16/2021. Plan is to discharge home today. Jeremy will be removed and Steri-Strips placed prior to discharge. Routine postoperative and instructions are given. She will be given prescriptions for her pain medications. She has been counseled regarding opioid use and has signed a opioid start talking form. She is advised to follow-up with Dr. Anderson in the office in approximately one week. She is advised to call the office if she has any further questions or concerns prior to her appointment times. Procedures: Repeat low transverse section on 06/16/2021 Patient Condition at Discharge: Stable Plan - Discharge Summary Discharge Rx Participant: No New Discharge Prescriptions: New Ibuprofen [Motrin] 600 mg PO Q6H PRN #30 tab PRN Reason: Pain oxyCODONE HCL [OxyIR] 5 mg PO Q4HR PRN #18 tab PRN Reason: Pain No Action Albuterol Nebulized (Conc) [Ventolin Nebulized (Conc)] 2.5 mg INHALATION Q6H PRN PRN Reason: sob Discharge Medication List Albuterol Nebulized (Conc) [Ventolin Nebulized (Conc)] 2.5 mg INHALATION Q6H PRN 06/14/21 [History] Ibuprofen [Motrin] 600 mg PO Q6H PRN #30 tab 06/17/21 [Rx] oxyCODONE HCL [OxyIR] 5 mg PO Q4HR PRN #18 tab 06/17/21 [Rx] Follow up Appointment(s)/Referral(s): Pernell Anderson MD [STAFF PHYSICIAN] - 07/27/21 2:30 pm (Please see me for an incision check on 06-27-2021 at 1:30p.m.) Patient Instructions/Handouts: (DC) Activity/Diet/Wound Care/Special Instructions: No heavy lifting or strenuous activity for 6 weeks. No intercourse or anything per vagina for 6 weeks. These call if any fever, chills, excessive vaginal bleeding, and/or abdominal pain. Discharge Disposition: HOME SELF-CARE
== END 2021-06-18 13:25 | disposition home or self-care (01) | DRG 787 ==
LOC: 4FBP 06:05
PROVIDERS: ADMIT Obstetrics & Gynecology; ATTEND Obstetrics & Gynecology
PROC: 10D00Z1 Extraction of Products of Conception, Low, Open Approach (ICD-10-PCS; principal; 2021-06-16 08:00)
DX: O34.211 Maternal care for low transverse scar from previous cesarean delivery (principal); O99.12 Other diseases of the blood and blood-forming organs and certain disorders involving the immune mechanism complicating childbirth; D69.6 Thrombocytopenia, unspecified; F17.200 Nicotine dependence, unspecified, uncomplicated; O99.334 Smoking (tobacco) complicating childbirth; O99.52 Diseases of the respiratory system complicating childbirth; J45.909 Unspecified asthma, uncomplicated; Z37.0 Single live birth; Z3A.39 39 weeks gestation of pregnancy
CPT/HCPCS: 85025; 86850; 86900; 86901